=== PATIENT | male | born 1950 | race Caucasian/White ===

== ENCOUNTER 2023-12-03 06:17 | Day surgery (SDC) | payer MEDICARE ==
[2023-12-03] VITALS (11 sets, daily range): BP systolic 109–145; BP diastolic 53–75; PULSE 63–75; RESP 12–19; TEMP 97.8; O2SAT 92–97
[~2023-12-03] VITALS: Ht 172.7 cm; Wt 99.2 kg
[2023-12-03 07:09] LABS: BASOPHILS % (AUTO) 0.6 % (0-1); EOSINOPHILS # (AUTO) 0.2 X10'3 (0-0.9); HEMATOCRIT 41.8 % (42.0-52.0); HEMOGLOBIN 14.3 g/dl (14.0-17.9); LYMPHOCYTES # (AUTO) 1.5 X10'3 (1.1-4.8); LYMPHOCYTES % (AUTO) 24.4 % (21-51); MEAN CORPUSCULAR HEMOGLOBIN 31.6 PG (27.0-31.0); MEAN CORPUSCULAR HGB CONC 34.1 g/dL (33.0-36.5); MEAN CORPUSCULAR VOLUME 92.7 FL (78-98); MEAN PLATELET VOLUME 7.6 FL (7.4-10.4); MONOCYTES # (AUTO) 0.8 X10'3 (0-0.9); MONOCYTES % (AUTO) 13.6 % (2-12); NEUTROPHILS # (AUTO) 3.6 X10'3 (1.8-7.7); NEUTROPHILS % (AUTO) 58.4 % (42-75); PLATELET COUNT 158 X10'3 (140-440); RED BLOOD COUNT 4.51 X10'6 (4.70-6.10); RED CELL DISTRIBUTION WIDTH 13.7 % (11.5-14.5); WHITE BLOOD COUNT 6.2 X10'3 (4.5-11.0)
[2023-12-03] MEDS ORDERED: LISI5TAB22 PO (07:14)
[2023-12-03] MEDS ORDERED: ASPI81TA52 PO (07:14)
[2023-12-03] MEDS ORDERED: OMEG1CAP46 PO (07:14)
[2023-12-03] MEDS ORDERED: CHOL100046 PO (07:14)
[2023-12-03] MEDS ORDERED: VITC500T PO (07:14)
[2023-12-03] MEDS ORDERED: ZINC25CA PO (07:14)
[2023-12-03] MEDS ORDERED: MULT-1085 PO (07:14)
[2023-12-03] MEDS ORDERED: ATOR40TA72 PO (07:14)
[2023-12-03] MEDS ORDERED: EZET10TA48 PO (07:14)
[2023-12-03] MEDS ORDERED: UBID100C45 PO (07:14)
[2023-12-03 07:16] LABS: INR 1.1 INR
[2023-12-03] MEDS: normal saline 1,000 ML IV SCH (07:30)
[2023-12-03] MEDS: diphenhydrAMINE 25mg capsule PO PRN (07:31)
[2023-12-03 07:54] LABS: ALBUMIN 3.3 G/DL (3.4-5.0); ANION GAP 12 (8-16); BLOOD UREA NITROGEN 17 MG/DL (7-18); BUN/CREATININE RATIO 18.1 (10.0-20.0); CALCIUM 9.1 MG/DL (8.5-10.1); CHLORIDE 106 MMOL/L (99-107); CREATININE 0.94 MG/DL (0.60-1.10); GLUCOSE 108 MG/DL (70-104); POTASSIUM 4.3 MMOL/L (3.5-5.1); SODIUM 141 MMOL/L (135-145); TOTAL CARBON DIOXIDE 23.4 MMOL/L (24-32); eCRCL 68 ML/MIN; eGFR 79 ML/MIN
[2023-12-03] MEDS: sodium bicarbonate 1meq/ml syr 150 ML in dextrose 5%-water 1,000 ML IV SCH (08:01)
[2023-12-03] MEDS ORDERED: LIDOcaine 1% 30ml preserv. free vial ONE (08:43)
[2023-12-03] MEDS ORDERED: fentaNYL/PF 50MCG/1 ML 2ML syringe ONE ×2 (08:43→10:13)
[2023-12-03] MEDS ORDERED: heparin 1,000unit/ml 10ml vial 10 ML ONE (08:44)
[2023-12-03] MEDS ORDERED: iohexol 350 MG/ML 50ML vial IV ONE ×3 (08:44→10:04)
[2023-12-03] MEDS ORDERED: iohexol 350MG/ML 100ml bottle IV ONE (08:44)
[2023-12-03] MEDS ORDERED: midazolam 1 mg/ML 2ml injection ONE ×2 (08:44→09:29)
[2023-12-03] MEDS ORDERED: acetaminophen 325mg tablet PO PRN (11:05)
[2023-12-03] MEDS ORDERED: proCHLORperazine 10 MG/2 ml inj IV PRN (11:05)
[2023-12-03] MEDS ORDERED: ondansetron/PF 4mg/2ml inj IV PRN (11:05)
[2023-12-03] MEDS ORDERED: HYDROcodone/acetaminophen 10/325mg tab PO PRN (11:05)
[2023-12-03] MEDS ORDERED: HYDROcodone/acetaminophen 5mg/325mg tablet PO PRN (11:05)
== END 2023-12-03 14:00 | disposition home or self-care (01) ==
LOC: SSTAY O 06:17
PROVIDERS: ATTEND Internal Medicine Cardiovascular Disease
DX: I25.10 Atherosclerotic heart disease of native coronary artery without angina pectoris (principal); I25.82 Chronic total occlusion of coronary artery; E78.5 Hyperlipidemia, unspecified; E11.9 Type 2 diabetes mellitus without complications; I10 Essential (primary) hypertension; E78.1 Pure hyperglyceridemia; Z95.1 Presence of aortocoronary bypass graft; Z79.899 Other long term (current) drug therapy; Z79.82 Long term (current) use of aspirin; Z95.5 Presence of coronary angioplasty implant and graft; Z82.49 Family history of ischemic heart disease and other diseases of the circulatory system
CPT/HCPCS: 36415; 80048; 83735; 85025; 85610; 93005; 93459; 99152; 99153; J1644; J2250; J3010; J3490; J7030; J7070; Q0163; Q9967; A6258; C1725; C1760; C1894

== ENCOUNTER 2024-03-04 12:27 | Outpatient (CLI) | payer MEDICARE ==
[~2024-03-04 12:27] MED LIST: ASPI81TA52 PO; ATOR40TA72 PO; CHOL100046 PO; EZET10TA48 PO; LISI5TAB22 PO; MULT-1085 PO; OMEG1CAP46 PO; UBID100C45 PO; VITC500T PO; ZINC25CA PO
[2024-03-04] MEDS ORDERED: KRIL500C PO (14:08)
[2024-03-04] MEDS ORDERED: QUNOL PO (14:08)
[2024-03-04 14:38] LABS: BASOPHILS % (AUTO) 0.7 % (0-1); EOSINOPHILS # (AUTO) 0.2 X10'3 (0-0.9); LYMPHOCYTES % (AUTO) 27.6 % (21-51); MEAN CORPUSCULAR HEMOGLOBIN 31.8 PG (27.0-31.0); MEAN CORPUSCULAR HGB CONC 34.2 g/dL (33.0-36.5); MEAN CORPUSCULAR VOLUME 92.9 FL (78-98); MEAN PLATELET VOLUME 7.7 FL (7.4-10.4); MONOCYTES # (AUTO) 0.9 X10'3 (0-0.9); MONOCYTES % (AUTO) 12.1 % (2-12); NEUTROPHILS % (AUTO) 56.6 % (42-75); PRE OP HEMATOCRIT 46.5 % (42.0-52.0); PRE OP HEMOGLOBIN 15.9 g/dL (14.0-17.9); PRE OP PLATELET COUNT 172 X10'3 (140-440); PRE OP WHITE BLOOD COUNT 7.1 10'3 (4.8-10.8); RED BLOOD COUNT 5.01 X10'6 (4.70-6.10); RED CELL DISTRIBUTION WIDTH 13.9 % (11.5-14.5)
[2024-03-04 14:59] LABS: ALBUMIN 3.9 G/DL (3.4-5.0); ALBUMIN/GLOBULIN RATIO 0.9 (1.1-1.5); ALKALINE PHOSPHATASE 75 IU/L (46-116); BLOOD UREA NITROGEN 15 MG/DL (7-18); BUN/CREATININE RATIO 15.6 (10.0-20.0); CALCIUM 9.7 MG/DL (8.5-10.1); CHLORIDE 101 MMOL/L (99-107); CREATININE 0.96 MG/DL (0.60-1.10); PRE OP ALT 43 U/L (30-65); PRE OP ANION GAP 8 (8-16); PRE OP AST 23 U/L (10-37); PRE OP BILIRUB, TOTAL 0.6 MG/DL (0.0-1.0); PRE OP GLUCOSE 95 MG/DL (70-104); PRE OP POTASSIUM 4.3 MMOL/L (3.4-5.1); PRE OP SODIUM 137 MMOL/L (135-145); TOTAL CARBON DIOXIDE 28.3 MMOL/L (24-32); TOTAL PROTEIN 8.4 G/DL (6.4-8.2); eGFR 77 ML/MIN
== END 2024-03-04 23:59 | disposition home or self-care (01) ==
LOC: LAB 12:27 → EDSTATUS 03-14 09:45
PROVIDERS: ATTEND Orthopaedic Surgery
DX: Z01.818 Encounter for other preprocedural examination (principal); M17.12 Unilateral primary osteoarthritis, left knee; I10 Essential (primary) hypertension; E11.9 Type 2 diabetes mellitus without complications; E78.5 Hyperlipidemia, unspecified; I20.9 Angina pectoris, unspecified; Z79.82 Long term (current) use of aspirin; Z79.899 Other long term (current) drug therapy; Z95.1 Presence of aortocoronary bypass graft; Z98.890 Other specified postprocedural states
CPT/HCPCS: 36415; 80053; 85025; 86885; 86900; 86901; 87081

== ENCOUNTER 2024-05-02 05:50 | Day surgery (SDC) | payer MEDICARE ==
[2024-04-15 13:25] LABS: BASOPHILS % (AUTO) 0.5 % (0-1); EOSINOPHILS # (AUTO) 0.2 X10'3 (0-0.9); EOSINOPHILS % (AUTO) 3.1 % (0-6); LYMPHOCYTES # (AUTO) 1.8 X10'3 (1.1-4.8); LYMPHOCYTES % (AUTO) 28.4 % (21-51); MEAN CORPUSCULAR HEMOGLOBIN 32.1 PG (27.0-31.0); MEAN CORPUSCULAR HGB CONC 34.4 g/dL (33.0-36.5); MEAN CORPUSCULAR VOLUME 93.3 FL (78-98); MEAN PLATELET VOLUME 7.5 FL (7.4-10.4); MONOCYTES # (AUTO) 0.9 X10'3 (0-0.9); MONOCYTES % (AUTO) 13.4 % (2-12); NEUTROPHILS # (AUTO) 3.5 X10'3 (1.8-7.7); NEUTROPHILS % (AUTO) 54.6 % (42-75); PRE OP HEMATOCRIT 43.7 % (42.0-52.0); PRE OP PLATELET COUNT 168 X10'3 (140-440); PRE OP WHITE BLOOD COUNT 6.4 10'3 (4.8-10.8); RED BLOOD COUNT 4.69 X10'6 (4.70-6.10); RED CELL DISTRIBUTION WIDTH 13.9 % (11.5-14.5)
[2024-04-15 13:53] LABS: ALBUMIN 3.6 G/DL (3.4-5.0); ALBUMIN/GLOBULIN RATIO 0.9 (1.1-1.5); ALKALINE PHOSPHATASE 76 IU/L (46-116); BLOOD UREA NITROGEN 12 MG/DL (7-18); BUN/CREATININE RATIO 12.1 (10.0-20.0); CALCIUM 9.3 MG/DL (8.5-10.1); CHLORIDE 103 MMOL/L (99-107); CREATININE 0.99 MG/DL (0.60-1.10); PRE OP ALT 45 U/L (30-65); PRE OP ANION GAP 7 (8-16); PRE OP AST 25 U/L (10-37); PRE OP BILIRUB, TOTAL 0.6 MG/DL (0.0-1.0); PRE OP GLUCOSE 96 MG/DL (70-104); PRE OP POTASSIUM 4.5 MMOL/L (3.4-5.1); PRE OP SODIUM 138 MMOL/L (135-145); TOTAL CARBON DIOXIDE 27.6 MMOL/L (24-32); TOTAL PROTEIN 7.6 G/DL (6.4-8.2); eGFR 74 ML/MIN
[2024-05-02] VITALS (13 sets, daily range): BP systolic 123–158; BP diastolic 51–75; PULSE 51–84; RESP 14–18; TEMP 97.5–98.2; O2SAT 95–98
[~2024-05-02] VITALS: Ht 172.7 cm; Wt 101.0 kg
[~2024-05-02 05:50] MED LIST changes: +KRIL500C PO; -OMEG1CAP46 PO; +QUNOL PO; -UBID100C45 PO
[2024-05-02] MEDS: tranexamic acid inj. 1,000 MG in normal saline IV soln 100ML IV ONE (06:31)
[2024-05-02] MEDS: cefazolin 2gm/D5W 100mL 100 ML IV ONE (06:31)
[2024-05-02] MEDS: vancomycin 1,500 MG in NS 300ml IV soln IV ONE (06:40)
[2024-05-02] MEDS: gabapentin 300mg capsule PO ONE (06:40)
[2024-05-02] MEDS: metoclopramide 5 mg/ml inj IV ONE (06:40)
[2024-05-02] MEDS: ringers solution, lacted 1,000 ML IV SCH ×2 (06:40→08:55)
[2024-05-02] MEDS: oxyCODONE SR 10mg (sust. release) tab PO ONE (06:40)
[2024-05-02] MEDS: celeCOXIB 100mg capsule PO ONE (06:40)
[2024-05-02] MEDS: acetaminophen 325mg tablet PO ONE (06:41)
[2024-05-02] MEDS: famotidine 20mg tablet PO ONE (06:41)
[2024-05-02 06:44] LABS: BASOPHILS # (AUTO) 0.1 X10'3 (0-0.2); BASOPHILS % (AUTO) 0.8 % (0-1); EOSINOPHILS # (AUTO) 0.2 X10'3 (0-0.9); EOSINOPHILS % (AUTO) 3.5 % (0-6); LYMPHOCYTES # (AUTO) 1.7 X10'3 (1.1-4.8); LYMPHOCYTES % (AUTO) 27.6 % (21-51); MEAN CORPUSCULAR HEMOGLOBIN 31.2 PG (27.0-31.0); MEAN CORPUSCULAR HGB CONC 33.5 g/dL (33.0-36.5); MEAN PLATELET VOLUME 7.7 FL (7.4-10.4); MONOCYTES # (AUTO) 0.9 X10'3 (0-0.9); MONOCYTES % (AUTO) 14.8 % (2-12); NEUTROPHILS # (AUTO) 3.3 X10'3 (1.8-7.7); NEUTROPHILS % (AUTO) 53.3 % (42-75); PRE OP HEMATOCRIT 44.2 % (42.0-52.0); PRE OP HEMOGLOBIN 14.8 g/dL (14.0-17.9); PRE OP PLATELET COUNT 163 X10'3 (140-440); PRE OP WHITE BLOOD COUNT 6.1 10'3 (4.8-10.8); RED BLOOD COUNT 4.75 X10'6 (4.70-6.10); RED CELL DISTRIBUTION WIDTH 13.8 % (11.5-14.5)
[2024-05-02] MEDS: BUPIVACAINE/MELOXICAM 14 ML VIAL IL ONE ×2 (06:48→08:33)
[2024-05-02] MEDS: vancomycin 1,000mg inj ONE (06:48)
[2024-05-02 07:05] LABS: ALBUMIN 3.7 G/DL (3.4-5.0); ALKALINE PHOSPHATASE 74 IU/L (46-116); BLOOD UREA NITROGEN 19 MG/DL (7-18); BUN/CREATININE RATIO 22.6 (10.0-20.0); CALCIUM 9.4 MG/DL (8.5-10.1); CHLORIDE 104 MMOL/L (99-107); CREATININE 0.84 MG/DL (0.60-1.10); PRE OP ALT 38 U/L (30-65); PRE OP ANION GAP 10 (8-16); PRE OP AST 17 U/L (10-37); PRE OP BILIRUB, TOTAL 0.7 MG/DL (0.0-1.0); PRE OP GLUCOSE 119 MG/DL (70-104); PRE OP POTASSIUM 4.1 MMOL/L (3.4-5.1); PRE OP SODIUM 141 MMOL/L (135-145); TOTAL CARBON DIOXIDE 26.7 MMOL/L (24-32); TOTAL PROTEIN 7.5 G/DL (6.4-8.2); eCRCL 75 ML/MIN; eGFR 89 ML/MIN
[2024-05-02] MEDS ORDERED: naloxone 0.4 mg/ml inj IV PRN (07:10)
[2024-05-02] MEDS ORDERED: HYDROmorphone 1 mg/ml syringe IV PRN (07:10)
[2024-05-02] MEDS ORDERED: magnesium hydroxide 30ml (MOM) UD suspension PO PRN (07:10)
[2024-05-02] MEDS ORDERED: diphenhydrAMINE 25mg capsule PO PRN ×2 (07:10)
[2024-05-02] MEDS ORDERED: acetaminophen 325mg tablet PO PRN (07:10)
[2024-05-02] MEDS ORDERED: bisacodyl 10mg suppository rectal RC PRN (07:10)
[2024-05-02] MEDS ORDERED: ondansetron/PF 4mg/2ml inj IV PRN ×2 (07:10→08:55)
[2024-05-02] MEDS ORDERED: HYDROmorphone inj. 0.5 MG/0.5 ML DISP.SYRIN IV PRN (07:10)
[2024-05-02] MEDS ORDERED: HYDROcodone/acetaminophen 10/325mg tab PO PRN ×2 (07:10)
[2024-05-02] MEDS: cloNIDine hcl/PF 100mcg/ml inj ONE (07:19)
[2024-05-02] MEDS ORDERED: fentaNYL/PF 50MCG/1 ML 2ML syringe ONE (07:22)
[2024-05-02] MEDS ORDERED: MIDAZolam 1 MG/ML 5ML VIAL ONE (07:23)
[2024-05-02] MEDS ORDERED: BUPIVAcaine/dex-water/PF 7.5 mg/ml 2ml ampul ONE (07:29)
[2024-05-02] MEDS: multivitamins, therapeutics tablet PO SCH (08:00)
[2024-05-02 08:41] LABS: HEMOGLOBIN A1C 6.1 % (4.5-6.2)
[2024-05-02] MEDS ORDERED: meperidine/PF 25mg/ml syringe IV PRN ×3 (08:55)
[2024-05-02] MEDS ORDERED: morphine 2 MG/ML inj. syringe IV PRN (08:55)
[2024-05-02] MEDS ORDERED: morphine 4 MG/ML inj SYRINge IV PRN (08:55)
[2024-05-02] MEDS ORDERED: proCHLORperazine 10 MG/2 ml inj IV PRN (08:55)
[2024-05-02] MEDS: tranexamic acid inj. 1,000 MG in normal saline 100ml IV soln 90 ML IV ONE (10:00)
[2024-05-02] MEDS ORDERED: ePHEDrine 50MG/ML INJ. ONE (10:11)
[2024-05-02] MEDS: potassium cl 20mEq in 1/2 NS 1,000 ML IV SCH (11:34)
[2024-05-02] MEDS: aspirin 325mg tablet PO SCH (11:49)
[2024-05-02] MEDS: lisinopril 2.5mg tablet PO SCH (11:49)
[2024-05-02] MEDS: ascorbic acid 500mg tablet PO SCH (11:49)
[2024-05-02] MEDS: atorvastatin 20mg tablet PO SCH (11:49)
[2024-05-02] MEDS: ezetimibe 10mg tablet PO SCH (11:49)
[2024-05-02] MEDS: gabapentin 300mg capsule PO SCH (11:50)
[2024-05-02] MEDS: cefazolin 2gm/D5W 100mL 100 ML IV SCH (15:45)
[2024-05-02] MEDS: sennosides 8.6mg tablet PO SCH (21:42)
[2024-05-02] MEDS: VANCOMYCIN 1,500MG inj. 1,500 MG in normal saline 500ml IV soln 300 ML IV ONE (22:00)
[2024-05-03 06:00] VITALS: BP 138/76; PULSE 65; RESP 16; TEMP 97.5; O2SAT 95
[2024-05-03 06:02] LABS: BASOPHILS % (AUTO) 0.1 % (0-1); EOSINOPHILS % (AUTO) 0 % (0-6); HEMATOCRIT 36.2 % (42.0-52.0); HEMOGLOBIN 12.1 g/dl (14.0-17.9); LYMPHOCYTES # (AUTO) 0.7 X10'3 (1.1-4.8); LYMPHOCYTES % (AUTO) 6.2 % (21-51); MEAN CORPUSCULAR HEMOGLOBIN 31.1 PG (27.0-31.0); MEAN CORPUSCULAR HGB CONC 33.5 g/dL (33.0-36.5); MEAN CORPUSCULAR VOLUME 92.7 FL (78-98); MEAN PLATELET VOLUME 8.2 FL (7.4-10.4); MONOCYTES # (AUTO) 1.6 X10'3 (0-0.9); MONOCYTES % (AUTO) 13.2 % (2-12); NEUTROPHILS # (AUTO) 9.6 X10'3 (1.8-7.7); NEUTROPHILS % (AUTO) 80.5 % (42-75); PLATELET COUNT 154 X10'3 (140-440); RED CELL DISTRIBUTION WIDTH 13.5 % (11.5-14.5)
[2024-05-03 06:18] LABS: ANION GAP 10 (8-16); CHLORIDE 103 MMOL/L (99-107); POTASSIUM 4.5 MMOL/L (3.5-5.1); SODIUM 136 MMOL/L (135-145); TOTAL CARBON DIOXIDE 23.4 MMOL/L (24-32)
[2024-05-03 07:21] VITALS: BP_SYST 137; PULSE 65
[2024-05-03 09:53] VITALS: RESP 18
[2024-05-03] MEDS ORDERED: celeCOXIB 100mg capsule PO SCH (20:00)
== END 2024-05-03 11:35 | disposition home or self-care (01) ==
LOC: PAS 05:50 → ORTHO 4S 11:23 → PAS 05-03 11:35
PROVIDERS: ATTEND Orthopaedic Surgery
DX: M17.12 Unilateral primary osteoarthritis, left knee (principal); G89.18 Other acute postprocedural pain; I10 Essential (primary) hypertension; E11.9 Type 2 diabetes mellitus without complications; I25.10 Atherosclerotic heart disease of native coronary artery without angina pectoris; M19.90 Unspecified osteoarthritis, unspecified site; Z79.82 Long term (current) use of aspirin; Z79.899 Other long term (current) drug therapy; Z95.1 Presence of aortocoronary bypass graft; Z98.84 Bariatric surgery status; Z98.890 Other specified postprocedural states
CPT/HCPCS: 27447; 36415; 64447; 73560; 80051; 80053; 83036; 85025; 86885; 86900; 86901; 87081; 97110; 97116; 97161; A4215; A4618; A6258; A6402; A7000; C1713; C1776; J0690; J0735; J2250; J2765; J3010; J3370; J3480; J3490; J7030; J7040; J7120; Z7506; Z7508; Z7512; Z7610; A6449; G0378